=== PATIENT | female | born 1975 | race Caucasian/White ===

== ENCOUNTER 2020-09-02 09:08 | Outpatient (CLI) | payer BC, SELFPAY ==
--- NOTE | 2020-09-02 09:18 | XRR_ITS ---
PROCEDURE INFORMATION: Exam: XR Lumbosacral Spine, 2 or 3 Views Exam date and time: 09/02/2020 9:36 AM Age: 44 years old Clinical indication: Low back pain; Additional info: Back pain, lumbar TECHNIQUE: Imaging protocol: XR of the lumbosacral spine, 2 or 3 views. COMPARISON: No relevant prior studies available. FINDINGS: Bones/joints: The vertebral bodies maintain height and alignment. The facets align normally. There is multilevel facet arthropathy, most severe at L4-L5 and L5-S1. No significant disc space narrowing. No fracture. Soft tissues: No acute soft tissue abnormality. XR/XR lumbar spine 2-3V* [id number] IMPRESSION: Multilevel facet arthropathy.
== END 2020-09-02 09:09 | disposition home or self-care (01) ==
PROVIDERS: PCP Family Medicine; Visit Provider Family Medicine
DX: M47.816 Spondylosis without myelopathy or radiculopathy, lumbar region (principal)
CPT/HCPCS: 72100

== ENCOUNTER 2020-09-18 06:00 | Outpatient (RCR) | payer BC, SELFPAY | END 2020-09-22 23:59 | disposition home or self-care (01) | LOC: APT 06:00 | PROVIDERS: PCP Family Medicine; Referring Provider Family Medicine; Visit Provider Family Medicine | DX: M54.5 Low back pain (principal) | CPT/HCPCS: 97110; 97161 ==

== ENCOUNTER 2020-09-23 06:00 | Outpatient (RCR) | payer BC, SELFPAY | END 2020-10-23 23:59 | disposition home or self-care (01) | LOC: APT 06:00 | PROVIDERS: PCP Family Medicine; Referring Provider Family Medicine; Visit Provider Family Medicine | DX: M54.5 Low back pain (principal) | CPT/HCPCS: 97110 ==

== ENCOUNTER 2020-12-18 13:10 | Outpatient (CLI) | payer BC, SELFPAY ==
--- NOTE | 2020-12-18 13:29 | USCV_ITS ---
Sindhu Pham Age: 45 Gender: F : 1975 Exam Date: 12/18/2020 13:43 Ordering Phys: Trenton Anderson DO Technologist: KALIA [place]am [place] [facility] [place]: DVT HISTORY: DVT. PROCEDURES: Venous duplex imaging was performed in only the left lower extremity. The following venous structures were evaluated: common femoral vein, profunda vein, proximal portion of the greater saphenous vein, superficial femoral vein, and the popliteal vein. In addition, the posterior tibial and peroneal trunk were evaluated. Serial compression, augmentation maneuvers, and spectral Doppler flow evaluation were performed. FINDINGS: Normal 2-D Doppler and augmentation and compressibility throughout the lower extremity venous structures. Additional imaging through the proximal calf veins also reveals no thrombus. Limited evaluation of the greater saphenous vein is patent with no thrombus. CONCLUSIONS No DVT left lower extremity. Dr. Mechelle Herbert DO (Electronically Signed) Final Date: 18 Dec 2020 15:49 S
== END 2020-12-18 13:11 | disposition home or self-care (01) ==
LOC: RAD 13:18
PROVIDERS: PCP Family Medicine; Visit Provider Family Medicine
DX: I82.90 Acute embolism and thrombosis of unspecified vein (principal)
CPT/HCPCS: 93971

== ENCOUNTER 2021-03-20 11:21 | Outpatient (CLI) | payer BC, SELFPAY ==
--- NOTE | 2021-03-20 11:29 | MR_ITS ---
WS: [id number] MRI LUMBAR SPINE NONCONTRAST HISTORY: LUMBAR BACK PAIN COMPARISON: Lumbar spine radiograph 09/02/2020 TECHNIQUE: Sagittal and axial multisequence imaging is submitted. 7 cervical and 12 thoracic vertebral bodies are identified. There are 5 lumbar type vertebral bodies. S1 is lumbarized. This numbering pattern will be utilized. Mild disc desiccation at L5-S1 and at S1-S2. Conus terminates normally at L1-2 disc level. L1-L2: Normal. L2-L3: Small nerve root sleeve diverticulum on the RIGHT. No stenosis. Very mild ligamentum flavum hy pertrophy. L3-L4: Mild ligamentum flavum hypertrophy. No stenosis. Small amount of fluid in the RIGHT facet join t. L4-L5: Mild annular disc bulging with moderate ligamentum flavum hypertrophy and mild facet arthritis . No significant stenosis. L5-S1: Diffuse broad-based disc bulging posteriorly contacting the ventral thecal sac and causing mil d effacement. Moderate ligamentum flavum hypertrophy and moderate facet arthritis. Disc encroachment upon the S1 nerve roots bilaterally in the lateral recesses and subarticular foramina. Mild central a nd bilateral subarticular and foraminal stenosis. There is also mild contact on the RIGHT L5 exiting nerve root. Rudimentary disc at S1-S2 with mild contact on the ventral thecal sac. No stenosis. MR/MR lumbar spine wo con* [id number] IMPRESSION: 1. 5 lumbar type vertebral bodies. S1 is lumbarized. This numbering pattern wi ll be important if surgery is ever contemplated in this patient. 2. Broad-based disc bulging centrally at L5-S1 contacting the S1 nerve roots b ilaterally and also the RIGHT L5 nerve root. Mild central, bilateral subarticul ar recess and foraminal stenosis, slightly greater on the RIGHT. 3. Facet joint arthritis as described above, most significant at L5-S1.
== END 2021-03-20 11:22 | disposition home or self-care (01) ==
LOC: RADSHAW 11:26
PROVIDERS: PCP Family Medicine; Visit Provider Family Medicine
DX: Q76.49 Other congenital malformations of spine, not associated with scoliosis (principal); M51.27 Other intervertebral disc displacement, lumbosacral region; M47.817 Spondylosis without myelopathy or radiculopathy, lumbosacral region
CPT/HCPCS: 72148

== ENCOUNTER → 2021-04-15 07:58 | Outpatient (BNVA) | payer BC, SELFPAY | PROVIDERS: PCP Family Medicine; Referring Provider Family Medicine; Visit Provider Orthopaedic Surgery | DX: M13.88 Other specified arthritis, other site (principal); M54.5 Low back pain | CPT/HCPCS: 72110 ==

== ENCOUNTER → 2021-04-24 14:51 | Outpatient (BNVA) | payer BC, SELFPAY | PROVIDERS: PCP Family Medicine; Referring Provider Orthopaedic Surgery; Visit Provider Anesthesiology Pain Medicine | DX: M51.36 Other intervertebral disc degeneration, lumbar region (principal); M47.816 Spondylosis without myelopathy or radiculopathy, lumbar region; M46.00 Spinal enthesopathy, site unspecified; M79.606 Pain in leg, unspecified | CPT/HCPCS: 99204 ==

== ENCOUNTER → 2021-04-30 14:07 | Outpatient (BNVA) | payer BC, SELFPAY | PROVIDERS: PCP Family Medicine; Visit Provider Anesthesiology Pain Medicine | DX: M54.16 Radiculopathy, lumbar region (principal) | CPT/HCPCS: 64483; 64484; J1100; J3490 ==

== ENCOUNTER → 2021-05-14 14:26 | Outpatient (BNVA) | payer BC, SELFPAY | PROVIDERS: PCP Family Medicine; Visit Provider Anesthesiology Pain Medicine | DX: M54.16 Radiculopathy, lumbar region (principal) | CPT/HCPCS: 64483; 64484; J1100; J3490 ==

== ENCOUNTER → 2021-05-29 14:43 | Outpatient (BNVA) | payer BC, SELFPAY | PROVIDERS: PCP Family Medicine; Visit Provider Anesthesiology Pain Medicine | DX: M51.36 Other intervertebral disc degeneration, lumbar region (principal); M47.816 Spondylosis without myelopathy or radiculopathy, lumbar region; M46.00 Spinal enthesopathy, site unspecified; M79.606 Pain in leg, unspecified; Z87.891 Personal history of nicotine dependence | CPT/HCPCS: 99214 ==

== ENCOUNTER → 2022-08-03 10:18 | Outpatient (BNVA) | payer BC, SELFPAY | PROVIDERS: PCP Family Medicine; Visit Provider Nurse Practitioner | DX: Z20.822 Contact with and (suspected) exposure to COVID-19 (principal) | CPT/HCPCS: 87426 ==

== ENCOUNTER 2022-11-26 17:25 | Emergency (ER) | payer BC, SELFPAY ==
[2022-11-26] VITALS (7 sets, daily range): BP systolic 85–141; BP diastolic 56–93; PULSE 55–71; RESP 14–20; TEMP 36.3; O2SAT 97–100; BMI 31.9
--- NOTE | 2022-11-26 17:32 | ECG_ITS ---
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 Measurements Intervals [place] Rate: 59 P: 9 NC: 140 QRS: 42 QRSD: 77 T: 73 QT: 447 QTc: 445 Interpretive Statements SINUS BRADYCARDIA No previous ECG available for comparison Electronically Signed On 11-26-2022 21:22:37 CDT by Deondre Flynn M.D. [email or web address]/[id number]
--- NOTE | 2022-11-26 17:55 | XRR_ITS ---
PROCEDURE INFORMATION: Exam: XR Chest Exam date and time: 11/26/2022 6:30 PM Age: 46 years old Clinical indication: Pain; Chest pressure; Additional info: Cp TECHNIQUE: Imaging protocol: Radiologic exam of the chest. Views: 1 view. COMPARISON: No relevant prior studies available. FINDINGS: Lungs: The lungs are clear. Pleural spaces: Unremarkable. No pleural effusion. No pneumothorax. Heart/Mediastinum: Unremarkable. No cardiomegaly. Bones/joints: Unremarkable. XR/XR chest 1V portable [id number] IMPRESSION: No acute cardiopulmonary abnormality.
[2022-11-26] MEDS: ondansetron 2 mg/ML SDV 2 mL 4 MG IVP (18:25)
[2022-11-26] MEDS: sodium chloride 0.9% 1,000 ML 999 ML IV (18:25)
[2022-11-26] MEDS: morphine 4 mg/mL SDV 1 mL IVP (18:26)
[2022-11-26] MEDS: aspirin 81 mg Chew Tablet 324 MG PO (18:26)
--- NOTE | 2022-11-26 18:38 | ED_ITS ---
HPI - Chest Pain General: Chief Complaint: Chest Pain Stated Complaint: cp/arm numbness Time Seen by Provider: 11/26/22 17:54 Source: patient Mode of arrival: ambulatory Limitations: no limitations History of Present Illness: 46-year-old female states that she has been having chest pain since 1 PM states is a pain in the center of her chest states she had some radiation to her arm her arm felt numb. States the pain has improved is only 1 out of 10 currently has had some mild dyspnea she has no history of any cardiac issues no history of hypertension high blood cholesterol or diabetes. She has had a DVT 2 years ago she is no longer on Eliquis. She denies any cough or fever. Denies any worsen ing proving factors. Associated symptoms: Reports dyspnea; Deny abdominal pain, fever(s), nausea or vomiting Review of Systems Const: Denies: fever(s) or chills Eyes: Denies: eye discomfort ENMT: Denies: throat pain or dental pain Card: Reports: chest pain Resp: Reports: dyspnea GI: Denies: abdominal pain, nausea, vomiting or diarrhea : Denies: dysuria Musc: Denies: neck pain or back pain Skin/Breast: Denies: rash Neuro: Denies: headache(s) PFSH ED PFSH: Medical History Allergic rhinitis due to allergen Anxiety Depression History of DVT (deep vein thrombosis) Surgical History H/O: hysterectomy Family History Grandmother Cancer Breast Other Hypertension Social History Smoking and tobacco status: never smoked Second hand smoke exposure: No Smoking risk assessment/counseling performed?: No Alcohol intake: never Desire information about alcohol rehabilitation?: No Counseling given: No Substance/Drug Use: never Adopted: No Caregiver/support person: Yes Lives independently: Yes Household members: spouse Housing: House Number of children: 2 Number of grandchildren: 0 Highest education level completed: Master's Degree service: No Current occupational status: employed Current occupation: Teacher Current occupational exposures/hazards: No Pets and animals: Yes Leisure activites: exercise Sexually active: Yes Current gender identity: Female Special real needs: No Agree to transfusion: Yes Physical Exam Const: COMMON NORMALS: no acute distress, patient oriented x3 and healthy appearing HENMT: COMMON NORMALS: normocephalic and atraumatic HEAD & SCALP: normocephalic and atraumatic Eye: COMMON NORMALS: conjunctivae normal CONJUNCTIVA: Yes conjunctivae normal Neck/C-Spine: COMMON NORMALS: full ROM and supple Chest: COMMONS NORMALS: normal inspection of the chest and normal palpation of entire chest wall Resp: COMMON NORMALS: normal respiratory effort, No retractions, No use of accessory muscles and clear to auscultation bilaterally AUSCULTATION: clear to auscultation bilaterally Cardio: COMMON NORMALS: regular rate, regular rhythm and No murmurs present (Cardio) RATE: regular rate RHYTHM: regular rhythm GI: COMMON NORMALS: Normal to inspection, nondistended, normoactive bowel sounds present, Soft to palpation, non-tender and no masses PALPATION: Yes Soft to palpation Extremity: COMMON NORMALS: normal to inspection and full ROM Neuro: COMMON NORMALS: patient oriented x3, moves all extremities and no focal motor deficits Psych: COMMON NORMALS: mental status grossly normal, Normal thought process present and cooperative THOUGHT PROCESS: Normal thought process present Skin: COMMON NORMALS: no rashes or lesions noted and no wounds GENERAL SKIN EXAM: no rashes or lesions noted Course Vital Signs: Vital signs: Vital Signs Temperature 97.3 F L 11/26/22 17:29 Pulse Rate 56 L 11/26/22 20:31 Respiratory Rate 16 11/26/22 20:31 Blood Pressure 123/74 11/26/22 20:31 Pulse Oximetry 97 11/26/22 20:31 Oxygen Delivery Me thod Room Air 11/26/22 17:29 MDM - Chest Pain Medical Decision Making Patient presents here with chest pains atypical in nature she does have some anxiety her troponins here are normal she has no signs of acute coronary syndrome D-dimer was negative no signs of PE she feels improved she is stable for discharge she is to follow-up with PCP next week and return if worsening. Differential Diagnosis Unlikely acute massive pulmonary embolism or acute myocardial infarction Medical Records I reviewed the patient's medical records. Lab Data 11/26/22 18:30 11/26/22 18:30 Radiology Impressions Chest X-Ray 11/26/22 17:55 IMPRESSION: No acute cardiopulmonary abnormality. Laboratory Results WBC 6.3 10^3/uL (4.0-10.0) 11/26/22 18: RBC 4.81 10^6/uL (4.1-5.3) 11/26/22 18:30 Hgb 13.9 g/dL (11.5-15.3) 11/26/22 18: Hct 42.9 % (37.0-47.0) 11/26/22 18: MCV 89.2 fl (81-99) 11/26/22 18: MCH 28.9 pg (28.0-34.0) 11/26/22 18: MCHC 32.4 g/dL (30.0-36.0) 11/26/22 18: RDW 12.9 % (12.1-15.1) 11/26/22 18: Plt Count 316 10^3/cmm (130-400) 11/26/22 18: MPV 9.9 fL (7.4-10.4) 11/26/22 18: Neut % (Auto) 50.3 % 11/26/22 18: Lymph % (Auto) 33.5 % 11/26/22 18: [place] % (Auto) 8.1 % 11/26/22 18: Eos % (Auto) 6.0 % 11/26/22 18: Baso % (Auto) 1.6 % 11/26/22 18: Neut # (Auto) 3.18 10^3/uL (1.8-7.7) 11/26/22 18: Lymph # (Auto) 2.1 10^3/uL (0.8-4.8) 11/26/22 18: [place] # (Auto) 0.5 10^3/uL (0.2-0.9) 11/26/22 18: Eos # (Auto) 0.4 10^3/uL (0.0-0.8) 11/26/22 18: Baso # (Auto) 0.1 10^3/uL (0.0-0.1) 11/26/22 18: Nucleated RBC % (auto) 0 % 11/26/22 18:30 Nucleated RBCs # 0.0 /100WBC 11/26/22 18:30 D-Dimer 0.35 ug/mIFEU (0-0.59) 11/26/22 18:30 Sodium 139 mmol/L (136-145) 11/26/22 18:30 Potassium 4.3 mmol/L (3.5-5.1) 11/26/22 18:30 Chloride 103 mmol/L (98-107) 11/26/22 18:30 Carbon Dioxide 26 mmol/L (22-29) 11/26/22 18:30 Anion Gap 14.3 (5-19) 11/26/22 18:30 BUN 8 mg/dL (6-20) 11/26/22 18:30 Creatinine 0.7 mg/dL (0.5-0.9) 11/26/22 18:30 GFR Calculation 90.1 mL/min (90-130) 11/26/22 18:30 Glucose 91 mg/dL (65-115) 11/26/22 18:30 Calculated Osmolality 286 mOsm/kg (285-295) 11/26/22 18:30 Calcium 8.8 mg/dL (8.5-10.5) 11/26/22 18:30 Total Bilirubin 0.4 mg/dL (0.15-1.2) 11/26/22 18:30 AST 19 U/L (0-32) 11/26/22 18:30 ALT 26 U/L (0-33) 11/26/22 18:30 Alkaline Phosphatase 77 U/L (35-105) 11/26/22 18:30 Troponin T Baseline 6 ng/L (0-10) 11/26/22 18:30 Troponin T 120 Minute 6.00 ng/L (0-10) 11/26/22 20:17 Total Protein 7.3 g/dL (6.6-8.7) 11/26/22 18:30 Albumin 4.6 g/dL (3.5-5.2) 11/26/22 18:30 Globulin 2.7 g/dL (1.3-4.6) 11/26/22 18:30 Imaging Data CXR: I personally reviewed and interpreted this imaging study as follows: My impression: no acute abnormality Discharge Plan Discharge Patient Disposition: Home Clinical Impression: Chest pain Condition: Stable Prescriptions: No Action Zyrtec 10 mg capsule 10 mg PO DAILY PRN gabapentin 300 mg capsule 300 mg PO TID Qty: 90 0RF Victoza 3-Kemar 0.6 mg/0.1 mL (18 mg/3 mL) pen injector See Rx Instructions SUBCUT .COMPLEX Qty: 9 0RF Rx Instructions: inject 0.6mg subcutaneously once daily x 7 days; then 1.2mg daily, not to exceed 1.8mg/day SUBCUT (DME) pen needle, diabetic 33 gauge x needle See Rx Instructions .ROUTE .MEDSUPPLY Qty: 100 5RF Rx Instructions: 1 time day promethazine-DM 6.25-15 mg/5 mL syrup 5 ml PO Q6H PRN (Reason: cough) Qty: 120 0RF escitalopram oxalate 10 mg tablet See Rx Instructions .ROUTE .COMPLEX Qty: 30 5RF Dose Instruction: TAKE ONE TABLET BY MOUTH EVERY DAY FOR MOODS Rx Instructions: TAKE ONE TABLET BY MOUTH EVERY DAY FOR MOODS diazepam 5 mg tablet 5 mg PO BID PRN (Reason: anxiety) Qty: 60 5RF bupropion HCl 150 mg tablet sustained-release 12 hr See Rx Instructions .ROUTE .COMPLEX Qty: 60 5RF Dose Instruction: TAKE ONE TABLET BY MOUTH TWICE DAILY Rx Instructions: TAKE ONE TABLET BY MOUTH TWICE DAILY Discharge Orders: Discharge ED (Routine); Ordered 11/26/22 Ordered By: Hu Schwartz Referrals: Trenton Anderson DO [Primary Care Provider] - 1-3 days Discharge Diet: Advance as tolerated Discharge Activity: Resume usual activity Patient Instructions: Chest Pain (ED) Coding Level of Care Code ED [employer] for Jacob Gonzalez
[2022-11-26 18:42] LABS: Basophils # 0.1 10^3/uL (0.0-0.1); Basophils % 1.6 %; Eosinophils # 0.4 10^3/uL (0.0-0.8); Hematocrit 42.9 % (37.0-47.0); Hemoglobin 13.9 g/dL (11.5-15.3); Lymphocytes # 2.1 10^3/uL (0.8-4.8); Lymphocytes % 33.5 %; Mean Corpuscular HGB Conc 32.4 g/dL (30.0-36.0); Mean Corpuscular Hemoglobin 28.9 pg (28.0-34.0); Mean Corpuscular Volume 89.2 fl (81-99); Mean Platelet Volume 9.9 fL (7.4-10.4); Monocytes # 0.5 10^3/uL (0.2-0.9); Monocytes % 8.1 %; Neutrophils # 3.18 10^3/uL (1.8-7.7); Neutrophils % 50.3 %; Nucleated Red Blood Cells % 0 %; Platelet Count 316 10^3/cmm (130-400); Red Blood Count 4.81 10^6/uL (4.1-5.3); Red Cell Distribution Width 12.9 % (12.1-15.1); White Blood Count 6.3 10^3/uL (4.0-10.0)
[2022-11-26 19:10] LABS: D Dimer 0.35 ug/mIFEU (0-0.59)
[2022-11-26 19:13] LABS: Troponin(5th) Baseline 6 ng/L (0-10)
[2022-11-26 19:14] LABS: Alanine Aminotransferase 26 U/L (0-33); Albumin Level 4.6 g/dL (3.5-5.2); Alkaline Phosphatase 77 U/L (35-105); Anion Gap 14.3 (5-19); Aspartate Amino Transferase 19 U/L (0-32); Blood Urea Nitrogen 8 mg/dL (6-20); Calcium 8.8 mg/dL (8.5-10.5); Carbon Dioxide 26 mmol/L (22-29); Chloride 103 mmol/L (98-107); Globulin 2.7 g/dL (1.3-4.6); Glomerular Filtration Rate 90.1 mL/min (90-130); Glucose 91 mg/dL (65-115); Osmolality Calculated 286 mOsm/kg (285-295); Potassium 4.3 mmol/L (3.5-5.1); Sodium 139 mmol/L (136-145); Total Bilirubin 0.4 mg/dL (0.15-1.2); Total Protein 7.3 g/dL (6.6-8.7)
--- NOTE | 2022-11-26 19:56 | ECG_ITS ---
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 Measurements Intervals [place] Rate: 58 P: 37 PA: 165 QRS: 52 QRSD: 80 T: 51 QT: 463 QTc: 455 Interpretive Statements SINUS BRADYCARDIA Compared to ECG 11/26/2022 17:32:26 No significant changes Electronically Signed On 11-26-2022 21:33:52 CDT by Deondre Flynn M.D. [email or web address] [id number]
[2022-11-26 20:53] LABS: Troponin 5 2HR Delta 0 ABS# (0-10)
== END 2022-11-26 21:10 | disposition home or self-care (01) ==
PROVIDERS: Emergency Provider Emergency Medicine; PCP Family Medicine
DX: R07.9 Chest pain, unspecified (principal)
CPT/HCPCS: 36415; 71045; 80053; 84484; 85025; 85378; 93005; 96361; 96374; 96375; 99285; J2270; J2405; J7030

== ENCOUNTER → 2022-12-16 09:15 | Outpatient (BNVA) | payer BC, SELFPAY | PROVIDERS: PCP Family Medicine; Visit Provider Psychiatry & Neurology Neurology | DX: R20.0 Anesthesia of skin (principal); R53.83 Other fatigue | CPT/HCPCS: 36415; 82306; 82607; 82746; 83090; 83735; 83921; 84439; 84443; 84481; 85210; 85300; 85303; 85306; 85610; 85613; 85730; 86146; 86592; 86780 ==

== ENCOUNTER 2023-01-05 08:55 | Outpatient (CLI) | payer BC, SELFPAY ==
--- NOTE | 2023-01-05 08:45 | MR_ITS ---
WS: [id number] MRI HEAD WITH CONTRAST TECHNIQUE: Sagittal T1, T2 axial, T2 axial FLAIR, axial susceptibility weighted imaging, axial diffus ion weighted images, and coronal T2 images were obtained. Pre and post-T1 axial and post T1 coronal i mages. ADC and FSPGR images. CLINICAL INFORMATION: R20.0 - Anesthesia of skin COMPARISON: None. FINDINGS: No evidence restricted diffusion to suggest acute ischemia. Ventricular system and basal cisterns are patent. Normal posterior fossa. Normal vascular flow voids at the skull base. No extra-axial fluid c ollections. No evidence of mass or mass effect. No hemosiderin on susceptibly weighted images. Mild m ucosal thickening ethmoid air cells. Mastoid air cells well aerated. Normal posterior nasopharynx and parapharyngeal fat. Normal optic chiasm and pituitary infundibulum. Normal cavernous sinuses and Meckel's cave. No abnorm al intracranial enhancement. Normal dural venous sinuses. MR/MR head wo/w con [id number] IMPRESSION: 1. No evidence restricted diffusion to suggest acute ischemia. 2. No suspicious intracranial signal abnormalities. Normal harris-white differen tiation. 3. Mild mucosal thickening in the ethmoid air cells. Mastoid air cells well ae rated. 4. No hemosiderin on susceptibly weighted images. 5. No other suspicious findings.
== END 2023-01-05 08:56 | disposition home or self-care (01) ==
PROVIDERS: PCP Family Medicine; Visit Provider Psychiatry & Neurology Neurology
DX: R20.0 Anesthesia of skin (principal); R53.83 Other fatigue
CPT/HCPCS: 70553; A9577

== ENCOUNTER 2023-01-07 07:38 | Outpatient (CLI) | payer BC, SELFPAY ==
--- NOTE | 2023-01-07 07:45 | USCV_ITS ---
Sindhu Pham Age: 47 Gender: F : 1975 Exam Date: 01/07/2023 08:05 Ordering Phys: Parker Saravia MD Technologist: OBED [place] [facility] [place]: CHEST PAIN BP: 126 / 72 HR: 60 Rhythm: Sinus Technical Quality: Adequate MEASUREMENTS (Male / Female) Normal Values 2D ECHO LVOT Diameter 2.0 cm LV Ejection Fraction MOD 2C 46.1 % LV Ejection Fraction 2C AL 47.5 % LA Diameter 3.5 cm LA Width 2.5 cm LA Height 4.7 cm RA Width 3.1 cm RA Height 4.4 cm Aorta at Sinotubular Diameter 2.4 cm IVC Diameter 1.8 cm M-MODE Aortic Annulus Diameter 2.5 cm LA Ao Ratio MM 1.3 MV E Point Septal Separation 0.6 cm DOPPLER AV Peak Velocity 128.0 cm/s LVOT Peak Velocity 91.0 cm/s AV Area Cont Eq vti 2.6 cm squared AV Area Cont Eq pk 2.2 cm squared MV Peak Velocity 66.0 cm/s MV Area PHT 2.8 cm squared Mitral E to A Ratio 1.3 MV E' Velocity 39.5 cm/s Mitral E to MV E' Ratio 5.1 Mitral E to LV E' Lateral Ratio 4.1 Mitral E to LV E' Septal Ratio 6.8 TR Peak Velocity 183.5 cm/s TR Peak Gradient 13.5 mmHg TR Mean Velocity 149.9 cm/s TR Mean Gradient 9.3 mmHg TR Velocity Time Integral 67.5 cm TV Peak E Velocity 49.0 cm/s Right Atrial Pressure 3.0 mmHg Pulmonary Artery Systolic Pressu 16.5 mmHg PV Peak Velocity 84.0 cm/s RV Acceleration Time 0.1 s RV Ejection Time 0.3 s RV AcT/ET 0.3 FINDINGS Left Ventricle Left ventricle is normal in size. LV systolic function is normal with EF of 50 to 55%. No regional wall motion abnormalities are seen. Right Ventricle Normal in size and function Right Atrium Normal in size Left Atrium Normal in size Mitral Valve Structurally normal mitral valve. Trace mitral regurgitation. Aortic Valve Structurally normal aortic valve. No significant stenosis or regurgitation seen. Tricuspid Valve Mild tricuspid regurgitation. Insufficient TR jet to calculate RVSP Pulmonic Valve Not well-visualized Pericardium Normal Aorta Normal in size IVC Appears to be normal CONCLUSIONS LV systolic function is normal with EF 50 to 55%. Trace mitral regurgitation. Mild tricuspid regurgitation No comparison studies are available Jorje Leon MD (Electronically Signed) Final Date: 07 January 2023 17:25 S
== END 2023-01-07 07:39 | disposition home or self-care (01) ==
PROVIDERS: PCP Family Medicine; Visit Provider Psychiatry & Neurology Neurology
DX: R07.9 Chest pain, unspecified (principal); R53.83 Other fatigue; F41.9 Anxiety disorder, unspecified; R20.0 Anesthesia of skin
CPT/HCPCS: 93306

== ENCOUNTER → 2023-09-09 12:06 | Outpatient (BNVA) | payer BC, SELFPAY | PROVIDERS: PCP Family Medicine; Visit Provider Registered Nurse Neonatal Intensive Care | DX: Z20.828 Contact with and (suspected) exposure to other viral communicable diseases (principal); J06.9 Acute upper respiratory infection, unspecified | CPT/HCPCS: 87400 ==

== ENCOUNTER → 2023-10-01 11:39 | Outpatient (BNVA) | payer BC, SELFPAY | PROVIDERS: PCP Family Medicine; Visit Provider Family Medicine | DX: N39.0 Urinary tract infection, site not specified (principal) | CPT/HCPCS: 81000; 87077; 87086; 87184 ==

== ENCOUNTER 2024-01-21 09:30 | Outpatient (CLI) | payer BC, SELFPAY ==
--- NOTE | 2024-01-21 09:30 | MM_ITS ---
WS: [id number] BILATERAL SCREENING DIGITAL BREAST MAMMOGRAPHY WITH FRANCISCO DISPLACEMENT VIEWS. CAD PERFORMED. HISTORY: Z12.39 - Encounter for other screening for malignant neop... COMPARISON: None available. Bilateral craniocaudal and mediolateral oblique views are performed with tomosynthesis and SM. Francisco displacement views in CC and MLO projection also performed. Breasts composition: There are scattered areas of fibroglandular density. Retropectoral implants are intact. No suspicious masses or calcifications. No distortion. MM/[place] [id number] IMPRESSION: BI-RADS: 2-Benign FOLLOW-UP: 1 Year Follow-up
== END 2024-01-21 09:32 | disposition home or self-care (01) ==
PROVIDERS: PCP Family Medicine; Visit Provider Family Medicine
DX: Z12.31 Encounter for screening mammogram for malignant neoplasm of breast (principal); R92.323 Mammographic fibroglandular density, bilateral breasts; Z98.82 Breast implant status
CPT/HCPCS: 77063; 77067

== ENCOUNTER 2025-01-23 05:00 | Outpatient (RCR) | payer BC, SELFPAY | END 2025-02-22 23:59 | disposition home or self-care (01) | LOC: APT 05:00 | PROVIDERS: PCP Family Medicine; Visit Provider Family Medicine | DX: H81.10 Benign paroxysmal vertigo, unspecified ear (principal); M54.12 Radiculopathy, cervical region | CPT/HCPCS: 97110; 97112; 97161 ==

== ENCOUNTER 2025-01-30 15:02 | Outpatient (CLI) | payer BC, SELFPAY ==
--- NOTE | 2025-01-30 15:15 | MR_ITS ---
WS: [id number] MRI CERVICAL SPINE NONCONTRAST TECHNIQUE: Sagittal T1, T2 and STIR imaging. Axial T2, gradient, and fiesta imaging. CLINICAL INFORMATION: M54.2 - Cervicalgia COMPARISON: None. FINDINGS: Straightening of the normal cervical lordosis. Mild cervical curve. No high- grade central canal narrowing. Cord signal is normal. Slight retrolisthesis C3 on C4. C2-C3: Normal. C3-C4: Slight retrolisthesis. Mild facet arthropathy. Mild RIGHT greater than LEFT foraminal narrowing. Spinal canal is patent. C4-C5: Mild facet arthropathy. Spinal canal and foramen are patent. C5-C6: Mild disc bulging. Endplate ridging. Mild facet arthropathy. Mild LEFT and no significant RIGHT foraminal narrowing. C6-C7: Disc osteophyte complex with endplate ridging. Moderate to severe LEFT bony foraminal narrowing. Uncovertebral joint hypertrophy. Mild RIGHT foraminal narrowing. C7-T1: Mild LEFT bony foraminal narrowing. Spinal canal and RIGHT foramen are patent. Visualized brain stem structures: Normal. Prevertebral soft tissues: Normal. Small bilateral thyroid nodules. MR/MR cervical spin wo con* [id number] IMPRESSION: 1. Moderate to severe LEFT C6-7 bony foraminal narrowing. 2. Mild LEFT C5-6 and LEFT C7-T1 bony foraminal narrowing. 3. Small bilateral thyroid nodules. This can be followed up with ultrasound on an elective basis.
== END 2025-01-30 15:03 | disposition home or self-care (01) ==
LOC: RAD 15:07
PROVIDERS: PCP Family Medicine; Visit Provider Family Medicine
DX: M54.12 Radiculopathy, cervical region (principal); M48.02 Spinal stenosis, cervical region
CPT/HCPCS: 72141

== ENCOUNTER → 2025-02-08 15:08 | Outpatient (BNVA) | payer BC, SELFPAY | PROVIDERS: PCP Family Medicine; Visit Provider Family Medicine | DX: M54.12 Radiculopathy, cervical region (principal); E03.9 Hypothyroidism, unspecified; E04.1 Nontoxic single thyroid nodule | CPT/HCPCS: 84436; 84443; 84481 ==

== ENCOUNTER 2025-02-23 06:00 | Outpatient (RCR) | payer BC, SELFPAY | END 2025-03-25 23:59 | disposition home or self-care (01) | LOC: APT 06:00 | PROVIDERS: PCP Family Medicine; Visit Provider Family Medicine | DX: H81.10 Benign paroxysmal vertigo, unspecified ear (principal) | CPT/HCPCS: 97110; 97112; 97530 ==

== ENCOUNTER 2025-02-23 09:01 | Outpatient (CLI) | payer BC, SELFPAY ==
--- NOTE | 2025-02-23 09:15 | US_ITS ---
WS: [email or web address] THYROID ULTRASOUND HISTORY: small scattered thyroid nodules on recent cervical MRI COMPARISON: MRI 01/30/2025 Right lobe: 1.5 cm x 1.6 cm x 4.2 cm (w x ap x l). Volume: 5.1 cm3. Normal sized gland. Very hypoechoic nodule with ill-defined margins and a few scattered echogenic foci noted within the mid RIGHT thyroid. This nodule measures 1.1 x 1.0 x 1.4 cm. No increased vascularity. There are a few additional very small hypoechoic nodules. Left lobe: 1.7 cm x 1.1 cm x 4.1 cm (w x ap x l). Volume: 3.8 cm3. Normal sized gland. Heterogeneity within the gland. There are several nodules but these are small nodules. Largest nodule 0.9 x 0.6 x 1.5 cm. No echogenic foci. This nodule is in the superior gland. Isthmus: 0.2 cm. US/US thyroid [id number] IMPRESSION: 1. TI-RADS 5; RIGHT thyroid nodule suspicious for neoplasm. Although this nodu le is small recommend attempted FNA for cytology purposes. 2. Additional nodule in the LEFT thyroid is not quite is concerning. During bi opsy of the RIGHT thyroid nodule recommend LEFT thyroid to be evaluated for pos sible biopsy at that time also.
== END 2025-02-23 09:02 | disposition home or self-care (01) ==
LOC: RAD 09:02
PROVIDERS: PCP Family Medicine; Visit Provider Family Medicine
DX: E04.2 Nontoxic multinodular goiter (principal)
CPT/HCPCS: 76536

== ENCOUNTER 2025-02-28 12:18 | Outpatient (CLI) | payer BC, SELFPAY ==
--- NOTE | 2025-02-28 13:15 | US_ITS ---
WS: [email or web address] ULTRASOUND THYROID FNA CLINICAL INFORMATION: E04.1 - Nontoxic single thyroid nodule TECHNIQUE: Ultrasound-guided FNA FINDINGS: The procedure including risks, benefits, and complications were discussed with the patient who agreed to proceed. Timeout was performed. Using sterile technique patient was prepped and draped in usual sterile fashion. After 1% lidocaine, using ultrasound guidance, a 25-gauge needle was advanced into the RIGHT thyroid nodule. 5 passes were made. Pathology was present for slide preparation. No immediate complications. LEFT thyroid was imaged and demonstrates stable hypoechoic nodules. Recommend 12-month follow-up of the left-sided nodules. Largest nodule measures 1.5 cm in the superior thyroid. Patient remained in the ultrasound suite 10 minutes postprocedure with intermittent ultrasound to ensure no hematoma. No hematoma 10 minutes postprocedure. US/US biopsy/FNA thyroid [id number] IMPRESSION: 1. Uncomplicated ultrasound-guided thyroid FNA of the RIGHT mid thyroid nodule 2. Cytology is pending. 3. Recommend 12-month follow-up of the previously described LEFT thyroid nodul es.
== END 2025-02-28 12:19 | disposition home or self-care (01) ==
PROVIDERS: PCP Family Medicine; Visit Provider Clinical Nurse Specialist Adult Health
DX: E04.1 Nontoxic single thyroid nodule (principal)
CPT/HCPCS: 10005; 88173